=== PATIENT | female | born 1925 | race Caucasian/White ===

== ENCOUNTER → 2016-07-09 | Outpatient (CLI) | payer OTHER ==
[~2016-07-09] MED LIST: AMB10 PO; CALCTAB5; CMDUNK PO; DYZ PO; LTMOPS OPR; RSTOPS OP; TNRUNK PO; ZCRUNK PO; [UNRECOGNIZED DRUG - OTHER] PO
[2016-07-09 12:32] LABS: BASO % 0.5 %; BASO ABS # 0.05 K/uL (0-0.2); BLOOD UREA NITROGEN 31 mg/dl (7-18); BUN/CREATININE RATIO 27.8 (10-20); CARBON DIOXIDE 27 mmol/L (21-32); CHLORIDE 106 mmol/L (98-107); COMPLETE YES; EOS % 3.4 %; GLUCOSE 127 mg/dl (70-99); HEMATOCRIT 49.5 % (37-47); IG% 0.2 %; MEAN CELL VOLUME 93.4 fL (80-100); MEAN CORPUSCULAR HEMOGLOBIN 30.2 pg (25-34); MEAN CORPUSCULAR HGB CONC 32.3 g/dl (32-36); MEAN PLATELET VOLUME 10.4 fL (7.4-10.4); MONO % 8.2 %; NEUT % 56.7 %; PLATELET COUNT 259 K/uL (130-400); POTASSIUM 4.2 mmol/L (3.5-5.1); SODIUM 141 mmol/L (136-145); WHITE BLOOD COUNT 9.69 K/uL (4.8-10.8)
[2016-07-09 12:40] LABS: CALCIUM 9.6 mg/dl (8.5-10.1)
== END | disposition home or self-care (01) ==
LOC: C.LABOAKS 12:33
PROVIDERS: ATTEND Internal Medicine Critical Care Medicine
DX: I10 Essential (primary) hypertension (principal); N28.9 Disorder of kidney and ureter, unspecified; D64.9 Anemia, unspecified